=== PATIENT | male | born 1975 | race Caucasian/White ===

== ENCOUNTER → 2017-02-14 | Outpatient (CLI) | payer OTHER ==
--- NOTE | 2017-02-14 11:16 | MR ---
EXAMINATION TYPE: MR hip LT wo con DATE OF EXAM: 02/14/2017 10:39 AM COMPARISON: NONE HISTORY: Lt hip pain x 1 year, no trauma TECHNIQUE: Multiplanar, multiecho imaging of the left knee is performed without IV contrast. FINDINGS: There is no evidence of avascular necrosis. There is abnormal signal present in the anterio r aspect of the left acetabulum. There is some superior joint space loss bilaterally, slightly worse on the left than the right. There is a small geode in the lateral aspect of the right acetabulum. No definite labral tear is seen. Visualized soft tissue structures of the pelvis are normal. I do not see evidence of sports hernia. IMPRESSION: 1. MILD CHANGES OF OSTEOARTHRITIS PRESENT BILATERALLY, GREATER ON THE LEFT THAN THE RIGHT. 2. ABNORMAL SIGNAL IN THE SUBCHONDRAL PORTION OF THE ANTERIOR ACETABULUM ON THE LEFT. THE ETIOLOGY OF THIS IS UNCERTAIN. A NUCLEAR MEDICINE BONE SCAN WOULD BE SUGGESTED.
== END | disposition home or self-care (01) ==
LOC: RADMRIMAIN 09:05
PROVIDERS: ATTEND Family Medicine
DX: M16.0 Bilateral primary osteoarthritis of hip (principal); R93.7 Abnormal findings on diagnostic imaging of other parts of musculoskeletal system

== ENCOUNTER → 2018-01-20 | Outpatient (CLI) | payer OTHER ==
--- NOTE | 2018-01-20 13:12 | MR ---
MR brain without contrast HISTORY: H53.[address] brain 10/24/2016 Multiplanar multisequence imaging through the brain There is no restricted diffusion. There are extensive white matter signal changes to include perivent ricular, juxtacortical, pericallosal, subcortical foci on inversion recovery and T2-weighted sequence s. Right frontal lesion on axial image 19 measures approximately 2.5 cm in greatest anterior to poste rior dimension on the right frontal lobe, pericallosal lesion posteriorly on the left measures approx imately 18 mm in greatest anterior to posterior dimension. There are approximately 30-40 lesions pres ent. Right temporal lesion measures approximately 4.2 cm in greatest anterior to posterior dimension. Right cerebellar hemisphere also shows 2 lesions, there is abnormal increased signal also noted with in the akila on T2 and inversion recovery. There is no hemorrhage or hydrocephalus. The orbits show symmetric appearance. Inflammatory changes a re present within the ethmoid air cells, no periosteal thickening noted in the maxillary sinuses. The re are normal vascular flow voids. Petrous apex on the left shows inflammatory change. Increased sign al is present on inversion recovery and T2-weighted sequences. There is no mass effect. Corpus callos um, pituitary, cervical medullary junction, cerebellopontine angles are unremarkable. IMPRESSION: Demyelinating disease, correlate for multiple sclerosis. Sinus disease. Consider petrous apicitis on the left, cholesterol granuloma.
== END | disposition home or self-care (01) ==
LOC: RADMRIMAIN 09:00
PROVIDERS: ATTEND Psychiatry & Neurology Neurology
DX: G37.9 Demyelinating disease of central nervous system, unspecified (principal)
CPT/HCPCS: 70551

== ENCOUNTER 2018-03-23 08:37 | Day surgery (SDC) | payer OTHER ==
[2018-03-16 12:20] VITALS: BMI 31.2
[~2018-03-23 08:37] MED LIST: LACTATED RINGERS 1,000 ML IV SCH
[2018-03-23 09:59] VITALS: TEMP 97.3
--- NOTE | 2018-03-23 10:36 | P.PCN ---
Date of Procedure: 03/23/18 Procedure(s) Performed: Preoperative diagnosis: Multiple sclerosis Post operative diagnoses: Multiple sclerosis Anesthesia= moderate sedation with Versed 2 mg and fentanyl 100 g,and local infiltration with lidocaine 1% 2 mL. Condition: stable Complication: none. Description of the procedure procedure risk and benefits discussed with the patient and family, consent signed. Patient and the procedure area placed in sitting position back prepped with chlorhexidine 3 times been local infiltration of the skin and subcutaneous tissue with lidocaine 1% 2 mL for skin and subcu interstitial frustrations at L4 5 levels then 22-gauge Quincke- type needle advanced slowly at L4- 5 interlaminar space there was positive cerebrospinal fluid which was clear, no heme, no paresthesia ,total of 9 ML of clear cerebrospinal fluid collected in 4 different tubes 2-2-1/2 mL in each, then the needle removed and a Band-Aid applied and patient tolerated the procedure well without any complications.
[2018-03-23] MEDS ORDERED: IV FLUID CONTINUATION 1,000 ML IV ONE (10:43)
[2018-03-23 11:00] VITALS: RESP 18
[2018-03-23 11:29] VITALS: BP 130/87; PULSE 63
[2018-03-23 11:40] LABS: Glucose,CSF 53 mg/dL (40-70); Total Protein,CSF 67 mg/dL (12-60)
[2018-03-23 11:45] LABS: T4, Free (Free Thyroxine) 0.85 ng/dL (0.78-2.19)
[2018-03-23 12:55] LABS: Appearance,CSF Clear; CSF Tube Number 4; Nucleated Cells, CSF 0 u/L (0-5); Red Blood Cell,CSF 0 u/L (0-10)
[2018-03-23 17:24] LABS: DNA Double-Stranded NEGATIVE (NEGATIVE); RNP 0.3 AI
[2018-03-24 05:42] LABS: Angiotensin-1 Converting Enz. 42 U/L (8-52)
[2018-03-24 11:40] LABS: APTT 38 Sec(s) (<43); Dilute Russell Viper Venom 36 Sec(s) (<44)
[2018-03-25 14:19] LABS: IgG - CSF 6.5 mg/dL (0.0 - 3.4); IgG Synthesis Rate 11.98 mg/day (0.00 - 3.00); IgG/Albumin Index (CSF) 0.87 (0.00 - 0.77)
[2018-03-26 10:02] LABS: Lyme IgG/IgM 0.1 Index
[2018-03-26 11:02] LABS: VDRL, Qualitative CSF Nonreactive (Nonreactive)
== END 2018-03-23 12:14 | disposition home or self-care (01) ==
LOC: ORPAIN 08:37
PROVIDERS: ATTEND Specialist
DX: G35 Multiple sclerosis (principal)
CPT/HCPCS: 87476; 86592; 86235 ×3; 84439; 88108; 84157; 82945; 82040; 82042; 82784; 83916; 82164 ×2; 83873; 84443; 84450; 84460; 85730; 86431; 85613; 89050; 86618; 86780; 86038; 86225; 62270; J2250; J3010; 99152

== ENCOUNTER → 2018-04-07 | Outpatient (CLI) | payer OTHER ==
[~2018-04-07] MED LIST changes: -LACTATED RINGERS 1,000 ML IV SCH; +SODIUM CHLORIDE 0.9% 500 ML in EMPTY BAG 1 BAG IV PRN
[2018-04-07 15:20] VITALS: BP 156/105; PULSE 61; RESP 16; TEMP 98
== END | disposition home or self-care (01) ==
LOC: PROCWHC3 14:33
PROVIDERS: ATTEND Psychiatry & Neurology Neurology
DX: G35 Multiple sclerosis (principal)
CPT/HCPCS: 96365; J2930

== ENCOUNTER → 2019-12-06 | Outpatient (CLI) | payer OTHER ==
--- NOTE | 2019-12-06 15:59 | XR ---
EXAMINATION TYPE: XR cervical spine comp DATE OF EXAM: 12/06/2019 TECHNIQUE: Frontal, lateral, oblique, swimmers, and open mouth view of the cervical spine are obtaine d. HISTORY: M50.30 Degenerative disc disease, cervical COMPARISON: None FINDINGS: There is straightening of the usual cervical lordosis. Anterior cervical fusion device spa ns the C5-C7 vertebral bodies. At C5 there is a questioned cervical screw hardware fracture on the ri ght. Right neural foramen are patent other than mild neural foraminal narrowing at C6-C7 on the right from uncovertebral hypertrophy. Left neural foramen demonstrate mild narrowing at C4-C5 and C5-6 fro m uncovertebral hypertrophy. The cervical spine is visualized in its entirety from C1 thru the top of T1 level, it is satisfactory in alignment without evidence of acute fracture or dislocation. The pr e-vertebral soft tissue appears within normal limits. The C1-C2 articulation is within normal limits on the open mouth view. IMPRESSION: 1. No acute fracture or malalignment is seen in the cervical spine. 2. Surgical fusion of the cervical spine from C5 through C7. Possible cervical screw hardware fractur e at C5. 3. Mild multilevel degenerative disc disease of the cervical spine as detailed above and straightenin g of usual cervical lordosis that may be on the basis of muscular strain/spasm or patient positioning .
== END | disposition home or self-care (01) ==
LOC: RADXRMAIN 15:27
PROVIDERS: ATTEND Family Medicine
DX: M50.30 Other cervical disc degeneration, unspecified cervical region (principal)
CPT/HCPCS: 72050

== ENCOUNTER → 2019-12-16 | Outpatient (CLI) | payer OTHER ==
--- NOTE | 2019-12-16 15:07 | CT ---
EXAMINATION TYPE: CT cervical spine wo con DATE OF EXAM: 12/16/2019 COMPARISON: None HISTORY: NECK PAIN CT DLP: 569.6 mGycm CONTRAST: None CT of the cervical spine is performed in the axial plane at 2 mm thick sections. Reconstructed image s in the coronal, and sagittal plane are reviewed on the computer. FINDINGS: There is an anterior cervical fusion of C5-C7. No acute fractures are evident. Vertebral body alignment is normal. Disc heights are preserved. Vertebral body heights are preserved. No spinal canal stenosis is evident Some mild foraminal narrowing due to uncovertebral joint hypertrophy is present C6-7. Mild disc space narrowing is present C5-6 C6-7 at the fusion level. IMPRESSIONS: 1. Postsurgical changes from anterior cervical fusion.
== END | disposition home or self-care (01) ==
LOC: RADCTMAIN 11:51
PROVIDERS: ATTEND Family Medicine
DX: M50.30 Other cervical disc degeneration, unspecified cervical region (principal); M54.12 Radiculopathy, cervical region; Z98.1 Arthrodesis status
CPT/HCPCS: 72125

== ENCOUNTER → 2020-12-27 | Outpatient (CLI) | payer OTHER ==
--- NOTE | 2020-12-27 08:19 | US ---
EXAMINATION TYPE: US abdomen complete DATE OF EXAM: 12/27/2020 COMPARISON: NONE CLINICAL HISTORY: R10.84,R11.0,R19.5,R11.2,K81.9,Z80.0. EXAM MEASUREMENTS: Liver Length: 12.8 cm Gallbladder Wall: 0.2 cm CBD: 0.4 cm Spleen: 10.9 cm Right Kidney: 11.1 x 4.6 x 5.7 cm Left Kidney: 12.2 x 5.3 x 5.3 cm Pancreas: Tail obscured by overlying bowel gas Liver: homogeneous Gallbladder: wnl Evidence for sonographic Haro's sign: no CBD: wnl Spleen: wnl Right Kidney: No hydronephrosis or masses seen Left Kidney: Inferior pole obscured by bowel gas, no hydronephrosis or masses seen Upper IVC: wnl Abd Aorta: wnl as seen, distal and bifurcation obscured by overlying bowel IMPRESSION: 1. No acute ultrasound abnormality within the abdomen
[2020-12-27 08:58] LABS: Basophils # (A) 0.1 k/uL (0-0.2); Basophils % (A) 1 %; Eosinophils # (A) 0.5 k/uL (0-0.7); Eosinophils % (A) 4 %; HCT 51.5 % (39.0-53.0); HGB 16.8 gm/dL (13.0-17.5); Lymphocytes # (A) 1.9 k/uL (1.0-4.8); Lymphocytes % (A) 17 %; MCH 29.7 pg (25.0-35.0); MCHC 32.5 g/dL (31.0-37.0); MCV 91.5 fL (80.0-100.0); Mean Platelet Volume 7.1; Monocytes # (A) 0.7 k/uL (0-1.0); Monocytes % (A) 6 %; Neutrophils # (A) 7.8 k/uL (1.3-7.7); Neutrophils % (A) 70 %; Platelet Count 230 k/uL (150-450); RBC 5.63 m/uL (4.30-5.90); WBC 11.2 k/uL (3.8-10.6)
[2020-12-27 09:13] LABS: ALT 17 U/L (4-49); AST 20 U/L (17-59); African American GFR (CKD) >90 (>60 ml/min/1.73 sqM); Albumin 4.6 g/dL (3.5-5.0); Alkaline Phosphatase 50 U/L (38-126); Anion Gap 6 mmol/L; Blood Urea Nitrogen 19 mg/dL (9-20); Carbon Dioxide 31 mmol/L (22-30); Chloride 104 mmol/L (98-107); Cholesterol 196 mg/dL (<200); Glucose 94 mg/dL (74-99); HDL Cholesterol 51 mg/dL (40-60); LDL Cholesterol,Calculated 120 mg/dL (0-99); Non-African American GFR(CKD) >90 (>60 ml/min/1.73 sqM); Potassium 4.4 mmol/L (3.5-5.1); Sodium 141 mmol/L (137-145); Total Bilirubin 0.7 mg/dL (0.2-1.3); Total Protein 7.3 g/dL (6.3-8.2); Triglycerides 125 mg/dL (<150)
[2020-12-27 09:28] LABS: T4, Free (Free Thyroxine) 1.01 ng/dL (0.78-2.19)
== END | disposition home or self-care (01) ==
LOC: RADUSWWP 07:16
PROVIDERS: ATTEND Family Medicine
DX: K81.9 Cholecystitis, unspecified (principal); R19.5 Other fecal abnormalities; I10 Essential (primary) hypertension; E78.5 Hyperlipidemia, unspecified; E55.9 Vitamin D deficiency, unspecified; G35 Multiple sclerosis; R53.83 Other fatigue; Z80.0 Family history of malignant neoplasm of digestive organs
CPT/HCPCS: 36415; 76700; 80053; 80061; 82306; 82607; 84207; 84439; 84443; 85025

== ENCOUNTER → 2021-02-14 | Outpatient (CLI) | payer OTHER ==
--- NOTE | 2021-02-14 12:17 | NM ---
EXAMINATION TYPE: NM hepatobiliary w EF DATE OF EXAM: 02/14/2021 COMPARISON: NONE HISTORY: Right upper quadrant pain TECHNIQUE: After the intravenous administration of 5.1 mCi Tc 99m Mebrofenin hepatobiliary scintigrap hy is performed. Immediate images post injection. FINDINGS: There is satisfactory initial accumulation of tracer by the liver. The gallbladder is visualized wit hin 14 minutes. The small bowel activity is noted within 24 minutes. At one hour 8 ounces of oral e nsure plus is given to mimic CCK and gallbladder ejection fraction is calculated at 83 %, in the norm al range. Therefore there is no scintigraphic evidence of cystic or common bile duct obstruction to suggest acute cholecystitis or gallbladder dyskinesia. IMPRESSION: Exam is within normal limits.
== END | disposition home or self-care (01) ==
LOC: RADNMMAIN 07:00
PROVIDERS: ATTEND Family Medicine
DX: R10.11 Right upper quadrant pain (principal)
CPT/HCPCS: 78226; A9537

== ENCOUNTER → 2021-03-29 | Outpatient (CLI) | payer OTHER ==
[2021-03-29 17:21] LABS: Basophils # (A) 0.05 X 10*3/uL (0.00-0.10); Basophils % (A) 0.7 %; Eosinophils # (A) 0.35 X 10*3/uL (0.04-0.35); Eosinophils % (A) 4.9 %; HCT 47.6 % (39.6-50.0); HGB 15.4 g/dL (13.0-17.0); Lymphocytes # (A) 2.04 X 10*3/uL (0.90-5.00); Lymphocytes % (A) 28.6 %; MCH 29.3 pg (27.0-32.0); MCHC 32.4 g/dL (32.0-37.0); MCV 90.7 fL (80.0-97.0); Mean Platelet Volume 10.4 fL (9.5-12.2); Monocytes # (A) 0.61 X 10*3/uL (0.20-1.00); Monocytes % (A) 8.6 %; Neutrophils # (A) 4.05 X 10*3/uL (1.80-7.70); Neutrophils % (A) 56.8 %; Platelet Count 265 X 10*3/uL (140-440); RBC 5.25 X 10*6/uL (4.40-5.60); RDW 12.6 % (11.5-14.5); WBC 7.13 X 10*3/uL (4.50-10.00)
[2021-03-29 22:01] LABS: ALT 22 U/L (10-49); AST 22 U/L (14-35); African American GFR (CKD) 119.1 (60.0-200.0); Albumin/Globulin Ratio 2.67 (1.60-3.17); Alkaline Phosphatase 60 U/L (41-126); Amylase 42 U/L (23-121); BUN/Creat Ratio 23.33 Ratio (12.00-20.00); C Reactive Protein <0.4 mg/dL (0.0-0.8); Calcium 9.5 mg/dL (8.7-10.3); Carbon Dioxide 25.4 mmol/L (21.6-31.8); Chloride 107 mmol/L (96-109); Globulin 1.8 g/dL (1.6-3.3); Glucose 122 mg/dL (70-110); Lipase 29 U/L (14-60); Non-African American GFR(CKD) 102.8 (60.0-200.0); Potassium 4.4 mmol/L (3.5-5.5); Sodium 142 mmol/L (135-145); Total Bilirubin 0.6 mg/dL (0.3-1.2); Total Protein 6.6 g/dL (6.2-8.2)
== END | disposition home or self-care (01) ==
LOC: LABWHC1 10:10
PROVIDERS: ATTEND Family Medicine
DX: F43.23 Adjustment disorder with mixed anxiety and depressed mood (principal); E55.9 Vitamin D deficiency, unspecified; R10.13 Epigastric pain
CPT/HCPCS: 36415; 80053; 82150; 82306; 83690; 84443; 85025; 86140

== ENCOUNTER → 2021-03-29 | Outpatient (CLI) | payer OTHER | END | disposition home or self-care (01) | LOC: LABWHC1 10:13 | PROVIDERS: ATTEND Surgery | DX: Z01.812 Encounter for preprocedural laboratory examination (principal); Z20.822 Contact with and (suspected) exposure to COVID-19 | CPT/HCPCS: U0003; C9803; U0005; 36415; 80053; 82150; 82306; 83690; 84443; 85025; 86140 ==

== ENCOUNTER 2021-04-05 06:55 | Day surgery (SDC) | payer OTHER ==
[2021-04-03 11:31] VITALS: BMI 28.1
[~2021-04-05 06:55] MED LIST changes: +LACTATED RINGERS 1,000 ML IV SCH; +LIDOCAINE 1% (10MG/ML) FOR IV START INTRADERMA PRN; -SODIUM CHLORIDE 0.9% 500 ML in EMPTY BAG 1 BAG IV PRN
[2021-04-05 07:20] VITALS: TEMP 97.7
[2021-04-05] MEDS ORDERED: LIDOCAINE 1% INJ 10MG/ML (20 ML MDV) ONE (07:31)
[2021-04-05] MEDS ORDERED: PROPOFOL 10 MG/ML 20 ML VIAL IV ONE (07:31)
--- NOTE | 2021-04-05 07:45 | P.PCN ---
Date of Procedure: 04/05/21 Preoperative Diagnosis: Epigastric pain Postoperative Diagnosis: Gastritis Duodenitis Procedure(s) Performed: EGD with biopsy Anesthesia: SYDNEY Surgeon: Jose R Murphy Pathology: other (Biopsies of esophagus, antrum, duodenum) Condition: stable Disposition: same day Indications for Procedure: 45-year-old male presented to the surgery clinic with complaints of abdominal pain. Gallbladder workup was performed and was negative. Plan is for upper endoscopy for further evaluation. Patient was explained the risks, benefits and alternatives to the procedure did provide consent prior to attending the endoscopy suite. Operative Findings: Significant gastritis and duodenitis Description of Procedure: The patient was brought into the endoscopy suite and placed in left lateral decubitus position and adequate sedation was achieved using conscious sedation. A bite block was placed and the scope was placed in the oropharynx and advanced under endoscopic visualization. The endoscope was advanced through the esophagus into the stomach, through the gastric antrum through the pylorus. The third portion of duodenum was visualized. The endoscope was then slowly withdrawn. The first portion of duodenum was noted to have significant inflammatory changes. Multiple biopsies were taken. The antrum was also noted to have significant amount of inflammatory changes. Biopsies were taken. There was no obvious ulceration. The gastric body distended normally and the gastric folds appeared normal and flattened with insufflation. A retroflexed view of the fundus and GE junction revealed no significant hiatal hernia. The esophagus appeared endoscopically normal. Biopsies were taken. Excess air was removed and the scope was withdrawn through the procedure was completed at this point. The patient was then sent to PACU in stable condition.
[2021-04-05 07:48] VITALS: PULSE 75
[2021-04-05 08:06] VITALS: BP 148/71; RESP 18
== END 2021-04-05 08:20 | disposition home or self-care (01) ==
LOC: ORWHC2ENDO 06:55
PROVIDERS: ATTEND Surgery
DX: K29.80 Duodenitis without bleeding (principal); K29.50 Unspecified chronic gastritis without bleeding; K21.9 Gastro-esophageal reflux disease without esophagitis; Z98.890 Other specified postprocedural states; Z82.49 Family history of ischemic heart disease and other diseases of the circulatory system; Z80.0 Family history of malignant neoplasm of digestive organs; Z82.62 Family history of osteoporosis; Z79.899 Other long term (current) drug therapy; Z79.1 Long term (current) use of non-steroidal anti-inflammatories (NSAID)
CPT/HCPCS: 88305; 88342; 43239; J2001; J2704

== ENCOUNTER 2021-05-07 | Emergency (ER) | payer OTHER ==
--- NOTE | 2021-05-07 10:32 | ED ---
Wound/Laceration HPI - General Chief Complaint: Wound/Laceration Stated Complaint: possible infection on arm Time Seen by Provider: 05/07/21 09:55 Source: patient Mode of arrival: ambulatory Limitations: no limitations - History of Present Illness Initial Comments: Patient is a 45-year-old male presenting to the emergency department for a check on and an abrasion to his right elbow. Patient states about 5 days ago, he was tased by police officers, he fell to the ground and suffered an abrasion to his right elbow. Patient states he did go to correction for a few days and is concerned that he has a MRSA infection. He denies any fevers or chills. He states he has been cleaning the wound, applying antibiotic and using peroxide. He denies any stiff can drainage from the area, no redness, no fevers. He has no further complaints at this time. - Related Data Home Medications Medication Instructions Recorded Confirmed ALPRAZolam [Xanax] 0.25 mg PO TID 04/03/21 04/03/21 Diroximel Fumarate [Vumerity] 2 cap PO BID 04/03/21 04/03/21 Meloxicam [Mobic] 15 mg PO HS 04/03/21 04/03/21 Previous Rx's Medication Instructions Recorded Omeprazole 40 mg PO Q24HR #30 capsule. 04/05/21 Allergies Allergy/AdvReac Type Severity Reaction Status Date / Time No Known Allergies Allergy Verified 05/07/21 09:46 Review of Systems ROS Statement: Those systems with pertinent positive or pertinent negative responses have been documented in the HPI. ROS Other: All systems not noted in ROS Statement are negative. Past Medical History Past Medical History: Musculoskeletal Disorder Additional Past Medical History / Comment(s): MS. History of Any Multi-Drug Resistant Organisms: None Reported Additional Past Surgical History / Comment(s): Neck surgery 2014 Past Anesthesia/Blood Transfusion Reactions: Motion Sickness, Postoperative Nausea & Vomiting (PONV) Past Psychological History: No Psychological Hx Reported Smoking Status: Never smoker Past Alcohol Use History: Occasional Past Drug Use History: Marijuana - Past Family History Mother Family Medical History: No Reported History General Exam - General Exam Comments Initial Comments: GENERAL: Patient is well-developed and well-nourished. Patient is nontoxic and in no acute distress. HEAD: Atraumatic, normocephalic. EYES: Pupils equal round and reactive to light, extraocular movements intact, sclera a nicteric, conjunctiva are normal. Eyelids were unremarkable. ENT: Nares patent, oropharynx clear without exudates. Moist mucous membranes. NECK: Normal range of motion, supple without lymphadenopathy or JVD. LUNGS: Unlabored respirations. Breath sounds clear to auscultation bilaterally and equal. No wheezes rales or rhonchi. HEART: Regular rate and rhythm without murmurs, rubs or gallops. ABDOMEN: Soft, nontender, normoactive bowel sounds. No guarding, no rebound. No masses appreciated. : Deferred MUSCULOSKELETAL: Normal extremities with adequate strength and normal range of motion, no pitting or edema. No clubbing or cyanosis. NEUROLOGICAL: Patient is alert and oriented x 3. Normal speech, normal gait. PSYCH: Normal mood, normal affect. SKIN: Warm, Dry, normal turgor. Patient has a and approximate 1 cm old/healing abrasion to the right elbow, this is healing well, no signs of cellulitis, no drainage. Limitations: no limitations Course Vital Signs 05/07/21 09:42 Temperature 98.1 F Pulse Rate 81 Respiratory 18 Rate Blood Pressure 137/83 O2 Sat by Pulse 96 Oximetry Medical Decision Making - Medical Decision Making Patient is a 45-year-old male here for a recheck of an abrasion he sustained 5 days ago. The area is healing well, no signs of infection or cellulitis. I recommended continuing with antibiotic twice daily on the wound. Clean with soap and water daily as well. He is stable for discharge. He is in agreement with this plan of care. Return parameters were discussed with him and he verbalized understanding. Case discussed with Dr. Bae. Disposition Clinical Impression: Abrasion of right elbow Disposition: HOME SELF-CARE Condition: Stable Instructions (If sedation given, give patient instructions): Abrasion (ED) Additional Instructions: Please return to the Emergency Department if symptoms worsen or any other concerns. Keep using topical antibiotic twice daily, wash with mild soap and water once daily. Is patient prescribed a controlled substance at d/c from ED?: No Referrals: Lalo Gutierrez MD [Primary Care Provider] - 1-2 days Time of Disposition: 10:31
== END 2021-05-07 10:44 | disposition home or self-care (01) ==
CPT/HCPCS: 99283

== ENCOUNTER → 2021-12-20 | Outpatient (CLI) | payer OTHER ==
[2021-12-20 18:17] LABS: Basophils # (A) 0.03 X 10*3/uL (0.00-0.10); Basophils % (A) 0.6 %; Eosinophils # (A) 0.07 X 10*3/uL (0.04-0.35); Eosinophils % (A) 1.5 %; HCT 46.9 % (39.6-50.0); HGB 15.5 g/dL (13.0-17.0); Lymphocytes # (A) 0.75 X 10*3/uL (0.90-5.00); Lymphocytes % (A) 15.9 %; MCH 29.2 pg (27.0-32.0); MCV 88.3 fL (80.0-97.0); Monocytes % (A) 8.5 %; Neutrophils # (A) 3.44 X 10*3/uL (1.80-7.70); Neutrophils % (A) 73.1 %; Platelet Count 209 X 10*3/uL (140-440); RBC 5.31 X 10*6/uL (4.40-5.60); RDW 12.3 % (11.5-14.5); WBC 4.71 X 10*3/uL (4.50-10.00)
[2021-12-20 18:45] LABS: African American GFR (CKD) 118.3 (60.0-200.0); Albumin/Globulin Ratio 2.27 (1.60-3.17); Anion Gap 11.9 mmol/L (10.00-18.00); BUN/Creat Ratio 15.67 Ratio (12.00-20.00); Blood Urea Nitrogen 14.1 mg/dL (9.0-27.0); Calcium 9.8 mg/dL (8.7-10.3); Carbon Dioxide 27.1 mmol/L (20.0-27.5); Globulin 2.2 g/dL (1.6-3.3); Non-African American GFR(CKD) 102.1 (60.0-200.0); PSA Annual Screen 0.4 ng/mL (0.000-4.000); Potassium 4.4 mmol/L (3.5-5.5); Total Bilirubin 0.6 mg/dL (0.30-1.20); Total Protein 7.2 g/dL (6.2-8.2)
== END | disposition home or self-care (01) ==
LOC: LABWHC1 13:11
PROVIDERS: ATTEND Psychiatry & Neurology Neurology
DX: Z00.00 Encounter for general adult medical examination without abnormal findings (principal); E55.9 Vitamin D deficiency, unspecified; E53.9 Vitamin B deficiency, unspecified; M19.90 Unspecified osteoarthritis, unspecified site; G35 Multiple sclerosis
CPT/HCPCS: 84207; 80053; 82607; 85025; 82306; 36415; G0103

== ENCOUNTER → 2022-08-18 | Outpatient (CLI) | payer OTHER ==
--- NOTE | 2022-08-19 08:22 | XR ---
EXAMINATION TYPE: XR shoulder complete LT DATE OF EXAM: 08/18/2022 CLINICAL HISTORY: pain COMPARISON: NONE TECHNIQUE: Three views of the left shoulder are obtained. FINDINGS: There is no acute fracture/dislocation evident. The acromioclavicular and glenohumeral marlene int spaces appear within normal limits. The visualized ribs are intact and unremarkable. IMPRESSION: 1. There is no acute fracture or dislocation. ICD 10 NO FRACTURE, INITIAL EVALUATION
--- NOTE | 2022-08-19 08:34 | XR ---
EXAMINATION TYPE: XR cervical spine comp DATE OF EXAM: 08/18/2022 CLINICAL HISTORY: pain COMPARISON: 12/06/2019 TECHNIQUE: Frontal, lateral, oblique, swimmers, and open mouth view of the cervical spine are obtaine d. FINDINGS: Postoperative changes following anterior cervical discectomy and fusion at C5-6 and C6-7. A nterior fixation plate in place. One of the C5 screws appears to be fractured. Alignment is anatomic. Remaining levels are within normal limits. No evidence for fracture or subluxation. IMPRESSION: Stable postoperative appearance of the cervical spine.
== END | disposition home or self-care (01) ==
LOC: RADXRMAIN 15:46
PROVIDERS: ATTEND Family Medicine
DX: M25.512 Pain in left shoulder (principal); M54.2 Cervicalgia
CPT/HCPCS: 72050